=== PATIENT | male | born 1965 | race Caucasian/White ===

== ENCOUNTER 2016-03-20 08:04 | Emergency (ER) | payer OTHER ==
[~2016-03-20] VITALS: Ht 182.9 cm; Wt 111.1 kg
[~2016-03-20 08:04] MED LIST: ADVAIR 250-501 EACH INH; ALBUTEROL2.5 MG/3 M INH/SOL; CIPRO 500MG (E500 MG PO; FLEXERIL10 MG PO; MEDROL DOSEPAK1 PAC PO; PREDNISONE20 M1 PO; PROAIR HFA0.09 MG/Ac INH; PYRIDIUM200 MG PO; ROBITUSSIN W/CO10 ML PO; VENTOLIN H0.09 MG/Ac INH; VENTOLIN1 PUF INH; ZITHROMAX Z-PA250 M1 PO
[2016-03-20 08:08] VITALS: BP 127/74
--- NOTE | 2016-03-20 08:13 | ED UPPER/LOWER EXTREMITY COMPL ---
History of Present Illness General Chief Complaint: Foot or Ankle Injury Stated Complaint: INJURY AT WORK RT ANKLE PAIN Source: patient Exam Limitations: no limitations Vital Signs & Intake/Output Vital Signs & Intake/Output Vital Signs Date Time Temp Pulse Resp B/P Pulse O2 O2 Flow FiO2 Ox Delivery Rate 03/20 0808 97.7 81 20 127/74 96 Room Air Allergies Coded Allergies: NO KNOWN ALLERGIES (10/09/14) Reconcile Medications Ketorolac Tromethamine 10 MG TABLET 1 TAB PO TID PRN PAIN RECEIVED IN ER- IM Triage Note: PT TO ED C/O RIGHT ANKLE PAIN X 2 DAYS. H/O STEEL PLATES IN ANKLE FROM INJURY YEARS AGO. PT STATE RE-INJURED ANKLE 2 DAYS AGO AT WORK. Triage Nurses Notes Reviewed? yes Onset: Abrupt Duration: constant Timing: recent history Severity: severe Severity Numbers: 8 HPI: Patient is a 50-year-old male with a past medical history of right ankle fractures with hardware placement based remotely who presents emergency and that 2 days ago patient was working patient actually got his foot caught in platform resulting in hyper plantar flexing his right ankle resulting in immediate acute onset of sharp 7 severe pain. Pain is localized to the right ankle and foot. Patient states that movement and ambulation make worse. Patient has iced and used OTC LIDOCAINE cream with minimal relief of symptoms. Skin is intact. Patient has associated swelling to the right ankle. (JANENE HUERTA) Past History Travel History Traveled to [place] past 21 day No Medical History Any Pertinent Medical History? see below for history Neurological: NONE EENT: NONE Cardiovascular: NONE Respiratory: asthma Gastrointestinal: NONE Hepatic: NONE Renal: NONE Musculoskeletal: chronic back pain Psychiatric: NONE Endocrine: NONE Blood Disorders: NONE Cancer(s): NONE COMPUTER REPAIRER/Reproductive: NONE History of CDIFF: No Surgical History Surgical History: BILATERAL ANKLE SURGERY Psychosocial History What is your primary language Indonesian Tobacco Use: Never used ETOH Use: denies use Illicit Drug Use: marijuana Family History Hx Contributory? No (JANENE HUERTA) Review of Systems Review of Systems Constitutional: Reports: no symptoms. EENTM: Reports: no symptoms. Respiratory: Reports: no symptoms. Cardiovascular: Reports: no symptoms. Gastrointestinal/Abdominal: Reports: no symptoms. Genitourinary: Reports: no symptoms. Musculoskeletal: Reports: see HPI, joint pain. Skin: Reports: no symptoms. Neurological/Psychological: Reports: no symptoms. Hematologic/Endocrine: Reports: no symptoms. Immunological: Reports: no symptoms. All Other Systems: Reviewed and Negative (JANENE HUERTA) Physical Exam Physical Exam General Appearance: no apparent distress, alert, comfortable Knee Right: normal range of motion, normal inspection, NONTENDER FULL ACTIVE RANGE OF MOTION Neurologic/Tendon: normal sensation, normal motor functions, normal tendon functions, responds to pain, no evidence tendon injury, no pulse deficit Skin: intact, normal color, warm/dry Comments: Well-developed well-nourished no apparent distress. HEENT: Atraumatic, extraocular motion intact Neck: Supple, no lymphadenopathy Back: Nontender Respiratory: No respiratory distress Extremities: Right ankle noted generalized swelling and point tenderness decreased active range of motion noted plantar flexion and dorsiflexion Right foot pedal pulse intact +2 sensation intact dome of the talus point tenderness Neuro: Alert and oriented x3 Psych: Mood affect normal, normal memory normal judgment. (JANENE HUERTA) Progress Differential Diagnosis: arterial insufficiency, compartment syndrome, contusion, dislocation, DVT, fracture, gout, septic arthritis, sprain, tendon injury Plan of Care: Orders Procedure Date/time Status Durable Medical Equipment 03/20 825 Active Durable Medical Equipment 03/20 824 Active Patient's x-rays were unremarkable for osseous injury. Tristen wrap Aircast stirrup and crutches were administered pre-and post-neurovascular was intact after application of Tristen wrap and Aircast. Patient was strongly advised to follow up with orthopedic doctor and to have nonweightbearing status until he can walk without pain. (JANENE HUERTA) Diagnostic Imaging: Viewed by Me: Radiology Read. Radiology Impression: no acute abnormality Comments: PATIENT: JOE PARSONS PRESENT AGE: 50 PATIENT ACCOUNT NO: [id number] : 67 LOCATION: [facility] ORDERING PHYSICIAN: JANENE BARGER SERVICE DATE: 03/20/16 EXAM TYPE: RAD - XRY-ANKLE 3 OR MORE VIEWS R; XRY-FOOT COMPLETE, R EXAMINATION: XR RIGHT ANKLE XR RIGHT FOOT CLINICAL INFORMATION: Pain after hyperplasia plantar flexion. Evaluate for fracture. COMPARISON: None. TECHNIQUE: Right ankle, 3 views Right foot, 3 views FINDINGS: Right ankle: The findings are consistent with remote, healed tibial pilon fracture. Also, there is an old, healed fracture of the distal fibular diaphysis. The fibular fixation plate and screws are intact. The tibial fixation hardware is intact with exception of the most distal screw which is fractured at its neck. There is an undulating, irregular contour of the articular surface of the tibial plafond and prominent osteophytes are present at the degenerated ankle. There is nonuniform narrowing of the ankle joint space. No focal soft tissue swelling around the ankle. Right foot: Small enthesophyte at the Achilles insertion onto the calcaneus. Well-corticated ossicles project distal to the fibular malleolus. Bones have normal alignment within the foot. No evidence of metatarsal fracture or acute phalangeal injury. IMPRESSION: 1. No acute findings within the right ankle or right foot. 2. Old healed fractures of the distal tibia and fibula. 3. [id number] osteoarthritis of the ankle. (JANENE HUERTA) Departure Departure Disposition: HOME OR SELF CARE Condition: Stable Clinical Impression Primary Impression: Right ankle sprain Referrals: MORENO GUIDRY DO (PCP/Family) NIKOLE MALHOTRA,GUILLERMINA Additional Instructions: As discussed begin using crutches as directed to you walk without pain. Begin icing the area directly 20 minutes every 2 hours. Begin using the prescription of ketorolac for pain and inflammation. If no better in one week follow up with orthopedic doctor NIKOLE for further evaluation treatment. If symptoms worsen return to emergency room. Begin to elevate THE foot for swelling. Begin using the Tristen wrap and Aircast for stability and support and swelling. Prescriptions waiting at your [facility] pharmacy Departure Forms: Employee Industrial Accident General Discharge Information Prescriptions: Current Visit Scripts Ketorolac Tromethamine 1 TAB PO TID PRN PAIN #15 TAB RECEIVED IN ER- IM (JANENE HUERTA) PA/SUIT ATTENDANT Co-Sign Statement Statement: ED Attending supervision documentation- [] I saw and evaluated the patient. I have also reviewed all the pertinent lab results and diagnostic results. I agree with the findings and the plan of care as documented in the PA's/SUIT ATTENDANT's documentation. [X] I have reviewed the ED Record and agree with the PA's/SUIT ATTENDANT's documentation. [] Additions or exceptions (if any) to the PAs/SUIT ATTENDANT's note and plan are summarized below: [] (FLORENTINO HERNÁNDEZ DO
[2016-03-20] MEDS ORDERED: KETOROLAC TROME10 M1 PO (08:22)
--- NOTE | 2016-03-20 09:01 | RADIOLOGY REPORT ---
EXAMINATION: XR RIGHT ANKLE XR RIGHT FOOT CLINICAL INFORMATION: Pain after hyperplasia plantar flexion. Evaluate for fracture. COMPARISON: None. TECHNIQUE: Right ankle, 3 views Right foot, 3 views FINDINGS: Right ankle: The findings are consistent with remote, healed tibial pilon fracture. Also, there is an old, healed fracture of the distal fibular diaphysis. The fibular fixation plate and screws are intact. The tibial fixation hardware is intact with exception of the most distal screw which is fractured at its neck. There is an undulating, irregular contour of the articular surface of the tibial plafond and prominent osteophytes are present at the degenerated ankle. There is nonuniform narrowing of the ankle joint space. No focal soft tissue swelling around the ankle. Right foot: Small enthesophyte at the Achilles insertion onto the calcaneus. Well-corticated ossicles project distal to the fibular malleolus. Bones have normal alignment within the foot. No evidence of metatarsal fracture or acute phalangeal injury. IMPRESSION: 1. No acute findings within the right ankle or right foot. 2. Old healed fractures of the distal tibia and fibula. 3. Dpkhqoyq-ry-[id number] osteoarthritis of the ankle.
== END 2016-03-20 09:15 ==
LOC: ERH 08:04
DX: S93.401A Sprain of unspecified ligament of right ankle, initial encounter (principal); X58.XXXA Exposure to other specified factors, initial encounter
CPT/HCPCS: 73610-RT; 73630-RT; 96372; J1885